=== PATIENT | female | born 1980 | race Caucasian/White ===

== ENCOUNTER 2018-02-12 14:36 | Emergency (ER) | payer OTHER ==
[2018-02-12 15:14] VITALS: TEMP 98.2
--- NOTE | 2018-02-12 15:43 | C.PDOC ---
History Of Present Illness 37 years old female presents to the ED for evaluation of back pain status post a fall at home prior to arrival. Patient reports she tripped, fell and injured her back. She denies any hitting her head, trauma, chest pain or shortness of breath. PMD: non provided Time Seen by Provider: 02/12/18 14:58 Chief Complaint (Nursing): Back Pain History Per: Patient History/Exam Limitations: no limitations Onset/Duration Of Symptoms: Hrs Past Medical History Reviewed: Historical Data, Nursing Documentation, Vital Signs Vital Signs: Last Vital Signs Temp 98.2 F 02/12/18 14:50 Pulse 96 H 02/12/18 14:50 Resp 18 02/12/18 14:50 BP 116/76 02/12/18 14:50 Pulse Ox 100 02/12/18 15:51 - Medical History PMH: No Chronic Diseases Surgical History: No Surg Hx Family History: States: Unknown Family Hx - Social History Hx Tobacco Use: No Hx Alcohol Use: No Hx Substance Use: No - Immunization History Hx Tetanus Toxoid Vaccination: No Hx Influenza Vaccination: No Hx Pneumococcal Vaccination: No Review Of Systems Except As Marked, All Systems Reviewed And Found Negative. Cardiovascular: Negative for: Chest Pain Respiratory: Negative for: Shortness of Breath Musculoskeletal: Positive for: Back Pain Neurological: Negative for: Headache Physical Exam - Physical Exam Appears: Non-toxic, No Acute Distress Head: Atraumatic Back: Paraspinal Tenderness (left lumbar), Other (Mobile mass under skin associated with a cyst) Neurological/Psych: Oriented x3 ED Course And Treatment O2 Sat by Pulse Oximetry: 100 (RA) Pulse Ox Interpretation: Normal Medical Decision Making Medical Decision Making: Time: 1508 Initial plan: --Motrin 600 mg PO --Tylenol 325 mg PO Disposition Counseled Patient/Family Regarding: Diagnosis, Need For Followup, Rx Given - Disposition Disposition: HOME/ ROUTINE Disposition Time: 15:52 Condition: STABLE Additional Instructions: Follow up with your doctor. Return to the Emergency Department with any further complaints. Prescriptions: Ibuprofen [Motrin] 600 mg PO TID #15 tab Instructions: Contusion (DC) Forms: [facility] (Greenlandic), General Discharge Instructions - Clinical Impression Clinical Impression: Contusion of back - Scribe Statement The provider has reviewed the documentation as recorded by the Scribe La Nena Ram
[2018-02-12 16:01] VITALS: BP 115/74; PULSE 84; RESP 16; O2SAT 98
== END 2018-02-12 16:00 | disposition home or self-care (01) ==
LOC: C.ER 14:36
DX: S30.0XXA Contusion of lower back and pelvis, initial encounter (principal); W01.0XXA Fall on same level from slipping, tripping and stumbling without subsequent striking against object, initial encounter; Y92.009 Unspecified place in unspecified non-institutional (private) residence as the place of occurrence of the external cause

== ENCOUNTER 2018-11-27 14:57 | Emergency (ER) | payer SELFPAY ==
--- NOTE | 2018-11-27 15:19 | C.PDOC ---
History Of Present Illness 38 y/o female, with no pertinent PMHx, comes in with mild swelling along the right PIP for the past 2 days, and mild pain when she moves it. She denies any pain when other people move the finger for her. Patient also complains of right shoulder pain. She notes she woke up with this pain but denies chest pain, SOB, abdominal pain, trauma or fall. Denies rash, arm swelling, forearm swelling, or wrist pain. Denies any neck pain. Denies taking any medications for the pain or recent travel. Denies any family history or personal history of autoimmune disease. Time Seen by Provider: 11/27/18 15:15 Chief Complaint (Nursing): Upper Extremity Problem/Injury History Per: Patient History/Exam Limitations: no limitations Onset/Duration Of Symptoms: Days Current Symptoms Are (Timing): Still Present Past Medical History Reviewed: Historical Data, Nursing Documentation, Vital Signs Vital Signs: Last Vital Signs Temp 98.3 F 11/27/18 15:12 Pulse 82 11/27/18 15:12 Resp 18 11/27/18 15:12 BP 106/72 11/27/18 15:12 Pulse Ox 100 11/27/18 15:12 Family History: States: No Known Family Hx - Social History Hx Tobacco Use: No Hx Alcohol Use: No Hx Substance Use: No - Immunization History Hx Tetanus Toxoid Vaccination: No Hx Influenza Vaccination: No Hx Pneumococcal Vaccination: No Review Of Systems Constitutional: Negative for: Fever, Chills, Weakness, Malaise Eyes: Negative for: Pain, Vision Change, Conjunctivae Inflammation, Eyelid Inflammation, Redness ENT: Negative for: Ear Pain, Ear Discharge, Nose Pain, Nose Discharge, Nose Congestion, Mouth Pain, Mouth Swelling, Throat Pain Cardiovascular: Negative for: Chest Pain, Palpitations, Orthopnea, Paroxysmal Noc. Dyspnea, Edema, Light Headedness, Other Respiratory: Negative for: Cough, Shortness of Breath, Hemoptysis, SOB with Excertion, Pleuritic Pain, Sputum Gastrointestinal: Negative for: Nausea, Vomiting, Abdominal Pain, Diarrhea, Co nstipation, Melena, Hematochezia, Hematemesis Genitourinary: Negative for: Dysuria, Frequency Musculoskeletal: Positive for: Shoulder Pain (Right), Other (Pain and swelling to right PIP 2nd and 3rd digit joint, no wrist pain). Negative for: Neck Pain, Arm Pain, Back Pain Skin: Negative for: Rash, Lesions, Jaundice Neurological: Negative for: Weakness, Numbness, Incoordination, Confusion, Seizures, Altered Mental Status, Headache Psych: Negative for: Anxiety, Depression Physical Exam - Physical Exam Appears: Well, Non-toxic, No Acute Distress Skin: Warm, Dry Head: Atraumatic, Normacephalic Eye(s): bilateral: Normal Inspection, PERRL, EOMI Nose: Normal Oral Mucosa: Moist Tongue: Normal Appearing Lips: Normal Appearing Teeth: Normal Dentition Gingiva: Normal Appearing Throat: Normal, No Erythema, No Exudate Neck: Normal ROM, No Midline Cervical Tenderness, Supple, Other (no meningeal signs) Chest: Symmetrical Cardiovascular: Rhythm Regular, No Friction Rub, No Murmur Respiratory: Normal Breath Sounds, No Rales, No Rhonchi, No Wheezing Gastrointestinal/Abdominal: Normal Exam, Soft, No Tenderness, No Mass, No Distention, No Guarding Back: Normal Inspection, No CVA Tenderness Extremity: Normal ROM, Tenderness (mild tenderness to dorsal surface of PIP joint without any skin breakage or abrasion; good neruovascular status, distal and proximal), Capillary Refill (less than 2 seconds), No Swelling (of extremities), Other (point tenderness to right shoulder) Extremity: Bilateral: Atraumatic, Normal Color And Temperature, Normal ROM Pulses: Left Radial: Normal, Right Radial: Normal Neurological/Psych: Oriented x3, Normal Speech, Normal Cognition, No Cerebellar Signs, Normal Motor Gait: Steady ED Course And Treatment O2 Sat by Pulse Oximetry: 100 (RA) Pulse Ox Interpretation: Normal - Other Rad Right hand XR X-Ray: Read By Radiologist Interpretation: Findings: Soft tissue swelling most prominent at the 3rd digit. No evidence of acute displaced fracture or dislocation. Impression: Negative acute. If pain persists, consider MRI. Right Shoulder XR X-Ray: Read By Radiologist Interpretation: Findings: No evidence of acute displaced fracture or dislocation. Glenohumeral and joint spaces are preserved. Impression: Negative acute. If pain persists, consider MRI. Medical Decision Making Medical Decision Makin yr old F p/w R 2nd and 3rd digit pip pain, swelling, and R shoulder pain. No fall or trauma. No increased warmth to joint. No knavels sign. N/v intact, good capi refill. Likely muscular pain. No rashes noted. Impression: Musculoskeletal pain Plan: --Tylenol --Right Shoulder XR --Right Hand XR 1654 imaging, unremarkable pain improved no indication for taping, no signs of trauma or ligament injury, remains w/ out snuff box pain pt remains in NAD w/ full rom and without knavel signs. Remains N/V intact Clear for d/c home with return indications and f/u. Pt agreeable to plan. Disposition - Disposition Referrals: [facility] [Outside] [facility] [Outside] [facility] [Outside] Dinah Puente MD [Staff Provider] - Disposition: HOME/ ROUTINE Disposition Time: 16:57 Condition: STABLE Additional Instructions: ELLIOT TROY, thank you for letting us take care of you today. Your provider was Sebastien Rogers and you were treated for FINGER PAIN. The emergency medical care you received today was directed at your acute symptoms. If you were prescribed any medication, please fill it and take as directed. It may take several days for your symptoms to resolve. Return to the Emergency Department if your symptoms worsen, do not improve, or if you have any other problems. Please contact your doctor or call one of the physicians/clinics you have been referred to that are listed on the Patient Visit Information form that is i ncluded in your discharge packet. Bring any paperwork you were given at discharge with you along with any medications you are taking to your follow up visit. Our treatment cannot replace ongoing medical care by a primary care provider outside of the emergency department. Thank you for allowing the [facility] team to be part of your care today. If you had an X-Ray or CT scan: A Radiologist will review the ED reading if any change in treatment is needed we will contact you. If you had a blood, urine, or wound culture: It will take several days for the results, if any change in treatment is needed we will contact you. If you had an STI test: It will take 48 hours for the results. Please call after 1 week if you have not heard back. Instructions: Shoulder Pain (DC), Common Finger Injuries Forms: [facility] ([place]) - Clinical Impression Clinical Impression: Sprain, Shoulder pain, right, Finger pain, right - Scribe Statement The provider has reviewed the documentation as recorded by the Scribe Zofia Adamsus Provider Attestation: All medical record entries made by the Mala were at my direction and personally dictated by me. I have reviewed the chart and agree that the record accurately reflects my personal performance of the history, physical exam, medical decision making, and the department course for this patient. I have also personally directed, reviewed, and agree with the discharge instructions and disposition.
[2018-11-27 15:21] VITALS: BP 106/72; PULSE 82; RESP 18; TEMP 98.3; O2SAT 100
--- NOTE | 2018-11-27 16:04 | RAD ---
Right hand three views HISTORY: Swelling. Comparison: None available. Findings: Soft tissue swelling most prominent at the 3rd digit. No evidence of acute displaced fracture or dislocation. Impression: Negative acute. If pain persists, consider MRI.
--- NOTE | 2018-11-27 16:11 | RAD ---
Right shoulder three views History: Swelling Comparison: None. Findings: No evidence of acute displaced fracture or dislocation. Glenohumeral and joint spaces are preserved. Impression: Negative acute. If pain persists, consider MRI.
== END 2018-11-27 17:03 | disposition home or self-care (01) ==
LOC: C.ER 14:57
DX: M79.644 Pain in right finger(s) (principal); M25.511 Pain in right shoulder; T14.8XXA Other injury of unspecified body region, initial encounter; X58.XXXA Exposure to other specified factors, initial encounter